=== PATIENT | male | born 1945 | race Caucasian/White ===

== ENCOUNTER 2017-07-08 10:43 | Emergency (ER) | payer MEDICARE ==
[2017-07-08] MEDS ORDERED: Ondansetron ODT 4 MG TAB ONE (11:20)
[2017-07-08 11:48] LABS: #Monocytes 0.8 thou/uL (0.11-0.59); #Neutrophils 3.5 thou/uL (1.40-6.50); %Basophils 0.1 % (0.0-1.0); %Eosinophils 0.3 % (0.0-10.0); %Lymphocytes 19.5 % (21.0-51.0); %Monocytes 14.6 % (0.0-10.0); %Neutrophils 65.6 % (42.0-75.0); Hemoglobin 15.6 g/dL (14.0-18.0); Mean Corpuscular HGB CONC 34.5 g/dL (32.0-36.0); Mean Corpuscular Hemoglobin 30.8 pg (27.0-31.0); Mean Corpuscular Volume 89.5 fl (80.0-94.0); Mean Platelet Volume 7.3 fL (7.4-10.4); Platelet Count 133 thou/uL (130-400); Red Blood Cell (RBC) Count 5.07 mill/uL (4.70-6.10); White Blood Cell (WBC) Count 5.3 thou/uL (4.8-10.8)
[2017-07-08 12:13] LABS: ALT (SGPT) 53 U/L (8-55); AST (SGOT) 71 U/L (5-34); Albumin 3.8 g/dL (3.4-4.8); Alkaline Phosphatase 85 U/L (40-150); Anion Gap 13 mmol/L (10-20); BUN (Urea Nitrogen) 17 mg/dL (8.4-25.7); Bilirubin, Total 1.2 mg/dL (0.2-1.2); Calc. Creatinine Clearance 0 mL/min (70-130); Calcium 8.6 mg/dL (7.8-10.44); Carbon Dioxide 21 mmol/L (23-31); Chloride 104 mmol/L (98-107); Estimated GFR-MDRD 56; Globulin 3.1 g/dL (2.4-3.5); Glucose 137 mg/dL (83-110); Lipase 24 U/L (8-78); Potassium 3.9 mmol/L (3.5-5.1); Protein, Total 6.9 g/dL (5.8-8.1); Sodium 134 mmol/L (136-145)
[2017-07-08 12:17] LABS: CKMB 4.3 ng/mL (0-6.6); Troponin I 0.011 ng/mL (< 0.028)
--- NOTE | 2017-07-08 13:02 | RAD ---
FRONTAL RADIOGRAPH CHEST UPRIGHT AND SUPINE IMAGING OF THE ABDOMEN: DATE: 07/08/17. COMPARISON: None. HISTORY: Vomiting and diarrhea. FINDINGS: Frontal radiograph chest demonstrates a hazy area of focal opacity in the mid left lung zone. No pne umothorax, pleural fluid, or lobar consolidation is evident. Upright imaging of the abdomen demonstr ates no free intraperitoneal air. The bowel gas pattern appears nonobstructed. IMPRESSION: 1. Focal hazy density in the mid left lung zone suggests an area of airspace disease on the basis of infectious pneumonitis or aspiration. Followup imaging of the chest following treatment to document resolution is recommended. 2. No evidence for free intraperitoneal air or small bowel obstruction. POS: [facility]
== END 2017-07-08 13:24 | disposition home or self-care (01) ==
LOC: ERS 10:43
DX: K52.9 Noninfective gastroenteritis and colitis, unspecified (principal); J18.9 Pneumonia, unspecified organism; F41.9 Anxiety disorder, unspecified; I10 Essential (primary) hypertension; Z86.73 Personal history of transient ischemic attack (TIA), and cerebral infarction without residual deficits; Z79.82 Long term (current) use of aspirin
CPT/HCPCS: 74022; 80053; 82553; 83690; 84484; 85025; 96360; 96361; Q0162

== ENCOUNTER 2018-06-10 11:01 | Emergency (ER) | payer MEDICARE, OTHER ==
--- NOTE | 2018-06-10 12:26 | RAD ---
PA AND LATERAL CHEST: Date: 06/10/18 HISTORY: Cough. COMPARISON: 07/08/17 exam. FINDINGS: Heart size is within normal limits. There is blunting to both costophrenic angles. Increased density in the basis is probably on the basis of some atelectasis, but slightly more confluent appearing in t he right lower lobe suggesting a possible pneumonic process. IMPRESSION: Small bilateral pleural effusions versus pleural thickening with bibasilar lung changes, worse in the right base, consistent with atelectasis versus infiltrate. POS: [facility]
[2018-06-10 12:45] LABS: #Basophils 0.1 thou/uL (0.0-0.2); #Eosinphils 0.1 thou/uL (0.0-0.7); #Lymphocytes 1.1 thou/uL (1.20-3.40); #Monocytes 0.6 thou/uL (0.11-0.59); #Neutrophils 6.2 thou/uL (1.40-6.50); %Basophils 0.8 % (0.0-1.0); %Eosinophils 1.2 % (0.0-10.0); %Lymphocytes 13.7 % (21.0-51.0); %Monocytes 7.6 % (0.0-10.0); %Neutrophils 76.7 % (42.0-75.0); Hemoglobin 14.3 g/dL (14.0-18.0); Mean Corpuscular HGB CONC 31.8 g/dL (32.0-36.0); Mean Corpuscular Hemoglobin 29.8 pg (27.0-31.0); Mean Corpuscular Volume 93.9 fL (78.0-98.0); Mean Platelet Volume 7.5 fL (7.4-10.4); Platelet Count 175 thou/uL (130-400); RBC Distribution Width 12.2 % (11.5-14.5); White Blood Cell (WBC) Count 8.1 thou/uL (4.8-10.8)
[2018-06-10 13:04] LABS: ALT (SGPT) 47 U/L (8-55); AST (SGOT) 35 U/L (5-34); Albumin 3.8 g/dL (3.4-4.8); Alkaline Phosphatase 79 U/L (40-150); Anion Gap 14 mmol/L (10-20); BUN (Urea Nitrogen) 20 mg/dL (8.4-25.7); Bilirubin, Total 1.3 mg/dL (0.2-1.2); CK (CPK) 97 U/L (30-200); Calc. Creatinine Clearance 0 mL/min (70-130); Calcium 8.9 mg/dL (7.8-10.44); Carbon Dioxide 21 mmol/L (23-31); Chloride 107 mmol/L (98-107); Estimated GFR-MDRD 54; Globulin 2.6 g/dL (2.4-3.5); Glucose 184 mg/dL (83-110); Lipase 21 U/L (8-78); Potassium 4.4 mmol/L (3.5-5.1); Protein, Total 6.4 g/dL (5.8-8.1); Sodium 138 mmol/L (136-145)
--- NOTE | 2018-06-10 13:09 | CT ---
CT BRAIN PERFORMED WITHOUT CONTRAST ENHANCEMENT: Date: 06/10/18 HISTORY: Altered mental status. COMPARISON: 03/01/11 study. FINDINGS: There is some mild ventricular and sulcal prominence. Somewhat asymmetric decreased attenuation adjac ent to the right frontal horn, although this is felt to be a stable finding. No intracerebral hemorrh age or extra-axial fluid collections. The mastoid air cells and visualized sinuses appear clear. IMPRESSION: No acute intracranial abnormalities. POS: [facility]
[2018-06-10 13:31] LABS: CKMB 3.5 ng/mL (0-6.6)
[2018-06-10] MEDS ORDERED: Aspirin Chewable 81 MG TAB ONE (13:38)
[2018-06-10] MEDS ORDERED: cefTRIAXone\\ROCEPHIN 2 GM VIAL ONE (13:38)
[2018-06-10 14:33] LABS: INR-International Normal Ratio 1.2; PTT 28.9 SEC (22.9-36.1); Prothrombin Time 14.9 SEC (12.0-14.7)
[2018-06-10 15:46] LABS: Critical Call Chem Troponin I RESULT DECREASING; Troponin I 0.502 ng/mL (< 0.028)
[2018-06-10] MEDS ORDERED: Azithromycin 500 MG VIAL ONE ×2 (15:49→16:06)
[2018-06-10 15:56] LABS: Bilirubin Small (Negative); Blood, Urine Negative (Negative); Clarity CLEAR (Clear); Glucose, Urine (Dipstick) Negative (Negative); Leukocyte Trace (Negative); Nitrite Negative (Negative); Protein, Urine (Dipstick) Negative (Neg-Trace); Specific Gravity, Urine 1.025 (1.002-1.036)
[2018-06-10 15:58] LABS: Bacteria/HPF None Seen HPF (None Seen); Hyaline Casts/LPF 7-10 HYALINE CAST LPF (0-3 Hyaline); Pathc Cast-AUWi Flag 2.04 (0-2.49); Squamous Epithelial 0-3 HPF (0-3)
== END 2018-06-10 18:56 | disposition short-term general hospital (02) ==
LOC: ERS 11:01
DX: R41.82 Altered mental status, unspecified (principal); R79.89 Other specified abnormal findings of blood chemistry; J18.1 Lobar pneumonia, unspecified organism; E11.9 Type 2 diabetes mellitus without complications; Z86.73 Personal history of transient ischemic attack (TIA), and cerebral infarction without residual deficits; I10 Essential (primary) hypertension; F41.9 Anxiety disorder, unspecified; Z79.82 Long term (current) use of aspirin; Z79.84 Long term (current) use of oral hypoglycemic drugs
CPT/HCPCS: 36415; 70450; 71046; 80053; 81003; 81015; 82550; 82553; 83605; 83690; 84484; 85025; 85610; 85730; 87040; 87086; 93005; 94760; 96365; J0456; J0696